=== PATIENT | male | born 1945 | race Caucasian/White ===

== ENCOUNTER 2018-05-27 10:23 | Emergency (ER) | payer MEDICARE ==
[~2018-05-27] VITALS: Ht 182.9 cm; Wt 107.0 kg
[2018-05-27 10:33] VITALS: BP 131/71
== END 2018-05-27 12:18 | disposition home or self-care (01) ==
LOC: ER 10:24
DX: M25.511 Pain in right shoulder (principal); M25.561 Pain in right knee; R60.0 Localized edema; E11.9 Type 2 diabetes mellitus without complications; W19.XXXA Unspecified fall, initial encounter; Y93.89 Activity, other specified; Y92.89 Other specified places as the place of occurrence of the external cause; Y99.9 Unspecified external cause status
CPT/HCPCS: 73030; 73564; 99284